=== PATIENT | male | born 1960 | race Caucasian/White ===

== ENCOUNTER → 2024-05-11 09:36 | Outpatient (CLI) | payer OTHER, SELFPAY | LOC: RESP 09:39 | PROVIDERS: Referring Provider Internal Medicine; Visit Provider Internal Medicine | DX: R06.09 Other forms of dyspnea (principal); J41.0 Simple chronic bronchitis; Z87.891 Personal history of nicotine dependence; R94.2 Abnormal results of pulmonary function studies | CPT/HCPCS: 94060 ==